=== PATIENT | male | born 1940 | race Caucasian/White ===

== ENCOUNTER 2020-05-07 17:11 | Inpatient (IN) | payer OTHER, MEDICARE ==
[2020-05-07] VITALS (107 sets, daily range): BP systolic 133; BP diastolic 80; PULSE 54; O2SAT 93–98
[~2020-05-07] VITALS: Ht 182.9 cm; Wt 116.8 kg
--- NOTE | 2020-05-07 18:10 | NUR ---
SEE MERGE DOCUMENTATION FOR MEDICATION ADMINISTRATION TIMES AND INTRA/POST PROCEDURE SEDATION ASSESSMENTS. PT DIRECT TO DIRECTOR OF REIMBURSEMENT VIA EMS. PT A&OX3 AND VERBALIZES UNDERSTANDING OF PROCEDURE. VERBAL CONSENT OBTAINED. PT ALSO VERBALLY CONSENTS TO BLOOD ADMIN IF NEEDED. VERIFIED WITH ARLENE LIU DIRECTOR OF REIMBURSEMENT.
--- NOTE | 2020-05-07 20:00 | NUR ---
PT ADITTED TO ICU 2 FROM [facility] WITH TEMP PACER IN PLACE, PT VSS AT THIS TIME, DENIES ANY PAIN. PT ORIENTATED TO ROOM AND RE-ORIENTED TO DX, TEMP PACER, AND POC. WILL CONTINUE TO MONTIOR AND AWAIT ORDERS, FOR MEDS AND ELECTROLYTE REPLACEMENT.
[2020-05-07] MEDS ORDERED: LIPITOR 80MG80 MG PO (23:50)
[2020-05-07] MEDS ORDERED: COREG 3.123.125 MG/T PO (23:51)
[2020-05-07] MEDS ORDERED: PRINIVIL2.5 MG PO (23:52)
[2020-05-07] MEDS ORDERED: DEMADEX 20MG20 M1 (23:54)
[2020-05-08] VITALS (450 sets, daily range): BP systolic 111–186; BP diastolic 57–102; PULSE 61–85; TEMP 97.9–98.7; O2SAT 85–96
[2020-05-08 00:07] LABS: BASO % 0.3 % (0.0-2.0); EOS # 0.2 (0.0-0.7); EOS % 2.8 % (0-4.0); GRAN # 4.4 (1.4-6.5); GRAN % 72.2 % (42.2-75.2); HEMATOCRIT 37.5 % (42.0-52.0); HEMOGLOBIN 12.5 g/dl (13.5-18.0); LYMPH % 16.2 % (20.0-51.0); MEAN CELL VOLUME 96 fl (80.0-100.0); MEAN CORPUSCULAR HEMOGLOBIN 32 pg (27.0-31.0); MEAN CORPUSCULAR HGB CONC 33 g/dl (33.0-37.0); MEAN PLATELET VOLUME 11.9 fl (7.4-10.4); MONO # 0.5 (0.1-0.6); MONO % 8.2 % (1.7-9.3); REDCELL DISTRIBUTION WIDTH-CV 14.2 % (11.5-14.5)
[2020-05-08 00:11] LABS: CREATININE, serum 0.82 (0.66-1.25); MAGNESIUM 1.9 mg/dL (1.6-2.3); POTASSIUM 3.5 mmol/L (3.4-5.0)
[2020-05-08 00:15] LABS: PLATELET COUNT 147 K/mm3 (130-400)
[2020-05-08] MEDS ORDERED: CALCIUM CARBON650 M2 (00:52)
[2020-05-08] MEDS ORDERED: METAMUCIL3.4 GM/DOS (00:54)
[2020-05-08] MEDS ORDERED: ZYLOPRIM 100MG100 MG (00:56)
[2020-05-08] MEDS ORDERED: KLOR-CON SPRIN10 MEQ (00:57)
[2020-05-08 05:21] LABS: BASO % 0.3 % (0.0-2.0); EOS # 0.2 (0.0-0.7); EOS % 2.8 % (0-4.0); GRAN # 4.6 (1.4-6.5); GRAN % 73.1 % (42.2-75.2); HEMOGLOBIN 12.6 g/dl (13.5-18.0); LYMPH % 15.5 % (20.0-51.0); MEAN CELL VOLUME 96 fl (80.0-100.0); MEAN CORPUSCULAR HEMOGLOBIN 32 pg (27.0-31.0); MEAN CORPUSCULAR HGB CONC 33 g/dl (33.0-37.0); MEAN PLATELET VOLUME 11.9 fl (7.4-10.4); MONO # 0.5 (0.1-0.6); PLATELET COUNT 150 K/mm3 (130-400); RED BLOOD COUNT 3.97 M/mm3 (4.20-5.60); REDCELL DISTRIBUTION WIDTH-CV 14.1 % (11.5-14.5)
[2020-05-08 05:35] LABS: ALBUMIN 2.8 gm/dL (3.5-5.0); BILIRUBIN,TOTAL 0.6 mg/dL (0.0-1.0); CREATININE, serum 0.82 (0.66-1.25); POTASSIUM 3.7 mmol/L (3.4-5.0); TOTAL PROTEIN 5.7 gm/dL (6.4-8.2)
--- NOTE | 2020-05-08 05:54 | NUR ---
POTASSIUM REPLACED WITH 20MEQ Q1HR =TOTAL OF 60MEQ
--- NOTE | 2020-05-08 07:45 | NUR ---
paint technician in room. Pt AAOx4, transvenous pacer insertion site stable MD Cornell at bedside, plan to keep pt NPO for dual chamber PPM. EKG to be completed while pacer is paused - RT notified Call light in reach
--- NOTE | 2020-05-08 10:53 | NUR ---
SW attended clinical rounds. The patient is to have a pacemaker placed today. SW then followed up with the patient to discuss discharge plan. The patient was living alone in [place], [place] and was on his way to [place], [place] to live with his girlfriend, Sujata Ponce (ph#[phone]). He states that his belongings are being shipped from [place] and should be arriving in [facility] soon. He reports independence with ADLs and has a cane and four wheel walker. The patient's PCP in [place] was Dr. Sanchez. He reports no difficulties obtaining his meds. The patient does not have a DPOA-HC completed, but he was interested in obtaining a form. SW provided the form. The patient states that he is not , does not have any children, and does not have any siblings. SW asked him about Sarah Haro on his person to notify, when states she is his daughter. The patient states that she is his ex-fiancee's daughter. The patient states that he has already been in contact with his insurance company and plans to rent a car after he discharges and drive to [facility]. SW to continue to follow.
--- NOTE | 2020-05-08 13:27 | NUR ---
Pt to [facility] for PPM insertion
--- NOTE | 2020-05-08 14:00 | NUR ---
SEE MERGE DOCUMENTATION FOR MEDICATION ADMINISTRATION TIMES AND INTRA/POST PROCEDURE SEDATION ASSESSMENTS.
--- NOTE | 2020-05-08 19:28 | NUR ---
Patient was transferred from ICU after pacemaker was placed. patient complained of 3/10 pain. Insulin not required at this time, BS 121. Patient tolerate diet. educated patient on left extremity restriction post pacmaker placement.
--- NOTE | 2020-05-08 20:22 | NUR ---
Resting in bed. Assessment complete. Lungs clear. Heart sounds normal. Bowels active x4. Pulses present. Bilateral lower extremity edema +2. INT right AC without complications. Reporting pain in left shoulder at pacer site. Will provided PRN tylenol. Denies other needs at this time. Call light in reach.
--- NOTE | 2020-05-09 00:46 | NUR ---
Resting in bed. Denies needs. Call light in reach.
--- NOTE | 2020-05-09 02:00 | NUR ---
Resting in bed. Denies needs. call light in reach.
[2020-05-09 03:24] VITALS: BP 139/62; PULSE 65; TEMP 98
--- NOTE | 2020-05-09 06:00 | NUR ---
Patient had uneventful night. Pacer interrogation complete. Denies needs at this time. Call light in reach.
--- NOTE | 2020-05-09 07:21 | NUR ---
Report given to ARLENE Dias
[2020-05-09 08:30] VITALS: BP 154/69; PULSE 72; TEMP 97.6
--- NOTE | 2020-05-09 09:14 | NUR ---
Pt awake and alert upon entry, talkative, no C/O pain at this time, pacemaker site CDI, IJ site CDI, shift assessments complete, left Pt call light in reach, bed in lowest position.
[2020-05-09 12:38] VITALS: BP 138/89; PULSE 64; TEMP 98.1
[2020-05-09 12:43] VITALS: BP 149/63; PULSE 73; TEMP 97.9
[2020-05-09 16:28] VITALS: BP 138/69; PULSE 77; TEMP 98.2
--- NOTE | 2020-05-09 17:01 | NUR ---
Casting Technician collaborated with ARLENE Dias and Draftsperson about discharge plan. Patient is not able to continue driving to [facility] due to his pacemaker being placed. SW met with patient who advised he can afford a bus ticket. SW assisted patient with purchasing a [employer] ticket. Departure will be 05/11/20 @ 0630 from [place], [place]. Draftsperson confirmed [employer] will provide transport to [place]. MILADY will follow up with [employer] tomorrow to schedule a ride from the hospital to [place]. MILADY will print patient's ticket and provide it to him tomorrow. Confirmation #[id number]. MILADY provided update to patient's girlfriend, Sujata Ponce. MILADY will continue to follow.
--- NOTE | 2020-05-09 19:24 | NUR ---
Pt resting in the room, no C/O pain today, both IJ and pacermaker sited remain CDI, VS have remained stable.
[2020-05-09 19:46] VITALS: BP 118/54; PULSE 79; TEMP 98.2
--- NOTE | 2020-05-09 22:40 | NUR ---
Pt assessment completed and documented. Pt sitting up in chair at this time watching television. Pt alert and oriented x3. Complaints of "itching" at pacemaker incision site that pt states the ice pack he has on it is relieving some of the discomfort. INT to right ac patent and has good blood return. Telemetry on. Pt denies any other needs at this time. Call light within reach. Will continue to monitor.
[2020-05-10] VITALS (7 sets, daily range): BP systolic 114–144; BP diastolic 56–74; PULSE 67–93; TEMP 97.4–98.6
--- NOTE | 2020-05-10 05:10 | NUR ---
Pt had uneventful shift. Pt went to bed around 0100 after sitting up in his recliner all evening. Pt has been resting in bed since. Complaints of itching discomfort to pacemaker site overnight. INT to right ac patent and intact. Dressing to pacemaker site CDI. Pt denies any other needs. Call light within reach.
[2020-05-10 07:35] LABS: CALCIUM 8.1 mg/dL (8.4-10.2); CREATININE, serum 1.01 (0.66-1.25); POTASSIUM 3.1 mmol/L (3.4-5.0)
[2020-05-10 07:37] LABS: BASO % 0.5 % (0.0-2.0); EOS # 0.2 (0.0-0.7); EOS % 2.8 % (0-4.0); GRAN # 4.4 (1.4-6.5); HEMATOCRIT 39.4 % (42.0-52.0); HEMOGLOBIN 13.3 g/dl (13.5-18.0); LYMPH # 1.1 (1.2-3.4); LYMPH % 17.6 % (20.0-51.0); MEAN CELL VOLUME 95 fl (80.0-100.0); MEAN CORPUSCULAR HEMOGLOBIN 32 pg (27.0-31.0); MEAN CORPUSCULAR HGB CONC 34 g/dl (33.0-37.0); MEAN PLATELET VOLUME 12.8 fl (7.4-10.4); MONO # 0.6 (0.1-0.6); MONO % 9.2 % (1.7-9.3); PLATELET COUNT 113 K/mm3 (130-400); RED BLOOD COUNT 4.16 M/mm3 (4.20-5.60); REDCELL DISTRIBUTION WIDTH-CV 14.1 % (11.5-14.5)
--- NOTE | 2020-05-10 09:02 | NUR ---
Pt awake and alert upon entry, finished breakfast, no C/O pain this morning. Shift assessments complete, left Pt call light in reach.
[2020-05-10] MEDS ORDERED: DEMADEX 20MG20 M1 PO (10:04)
[2020-05-10] MEDS ORDERED: K-DUR 10 MEQ T10 MEQ PO (10:05)
[2020-05-10] MEDS ORDERED: MACROBID 1100 MG/CAP PO (10:07)
--- NOTE | 2020-05-10 15:44 | NUR ---
Petroleum Refinery Worker contacted [facility] and scheduled slat pickler time for tomorrow, 05/11/20 @ 0445. Patient will be picked up in the ED entrance. MILADY met with patient and provided print out of his boarding passes. There is one for when he arrives in [place], and another that he will need to present when they arrive at [place], [place] and change busses. MILADY also printed out a purchase receipt and trip schedule, which was emailed to MILADY. MILADY also made a copy and placed on patient's chart, as a back up. SW provided slat pickler time for taxi tomorrow along with ugarte of ride to [place] which will be $120. Patient is frustrated with the cost of the taxi ride and bus trip, but states he can afford it as he was able to increase the limit on his credit card. MILADY confirmed with [facility] that they can take a credit or debit card. MILADY reviewed schedule with patient who verbalized understanding. MILADY encouraged patient to ask for help from [facility] staff if he has any questions when he switches buses in [place]. Patient again verbalized understanding. MILDAY contacted patient's girlfriend, Sujata and left a message. MILADY collaborated the above information to Clinic Manager and RN, Arun. MILADY spoke with Arun about having patient down in the ED entrance at 0430 to wait for [facility] to arrive. No additional needs at this time.
--- NOTE | 2020-05-10 19:07 | NUR ---
PATIENT UP INDEPENDENTLY IN ROOM AND HALLWAYS WITH NO C/O. TELE IN PLACE. CHANGE OF SHIFT REPORT RECEIVED FROM DAY SHIFT NURSE.
--- NOTE | 2020-05-10 20:00 | NUR ---
TELE IN PLACE, PATIENT WITH NO C/O CHEST PAIN OR SHORTNESS OF BREATH. REPORTS ANTICIPATED DISCHARGE EARLY AM, TO LEAVE HOSPITAL FOR BUS TRIP TO [place] AT 0430 ON 05/11, WANTING TO MAKE SURE ALL HIS PAPERWORK IS READY AND IN ORDER FOR HIM TO TAKE WITH HIM ON DISCHARGE. DENIES ANY NEEDS AT THIS TIME. UP INDEPENDENTLY WITH NO PROBLEMS. DRESSING TO LEFT UPPER CHEST PACEMAKER SX SITE CDI, REVIEWED KEEPING PACEMAKER INCISION COVERED DURING SHOWERS, CONTINUE WITH PACEMAKER RESTRICTION, TO WEAR SLING TO LUE WHEN IN BED/DURING SLEEP.
[2020-05-11 02:09] VITALS: BP 126/64; PULSE 78; TEMP 97.6
--- NOTE | 2020-05-11 02:18 | NUR ---
TELE REPORTED PATIENT WITH AFIB W/RVR RUN LASTING 25-30 SEC WITH HR 150, RHYTHM NOW CURRENTLY PACED W/SPIKES. VS TAKEN, SEE [facility] FOR RESULTS WITH PATIENT DENYING CHEST PAIN/SHORTNESS OF BREATHE. DR CALDERON INFORMED OF TELE REPORT AND SUBSEQUENT ASSESSMENT WITH NO NEW ORDERS GIVEN.
[2020-05-11 12:04] VITALS: BP 137/91; PULSE 70; TEMP 98.4
--- NOTE | 2020-05-11 13:40 | NUR ---
Ranch Rider was notified by Section Repairer that [employer] [facility] did not show up to tile picker patient this morning. MILADY collaborated with Section RepairerCari in Risk Management, and Belinda with the [facility] to establish discharge plan. With approval from Belinda, MILADY purchased a bus ticket for tomorrow, 05/12/20. Departure will be from [place] at 0630. Cost of ticket is $186.99. MILADY provided printed tickets and schedule to patient. MILADY collaborated with Section Repairer and Belinda to reserve a hotel room this evening in [place]. MILADY was advised we contract with with [facility]. MILADY spoke with Chandler at the [place] and made a reservation for this evening. Cost of hotel is $105.81. MILADY then contacted Isauro Marcelino, B2B [facility]. Isauro advised he could pick patient up today at 1500 to take patient to the [place] and could also tile picker patient tomorrow, 05/12/20 @ 0400 at the [place] [facility] [place] Cost of both trips totals $130. MILADY collaborated with Belinda who provided check made out to Isauro Marcelino. MILADY contacted Isauro again to notify him of method of payment and to again confirm tile picker time of tomorrow, 05/12/20 @ 0400. Isauro states he understands the importance of this and also verbalized understanding that he is being paid upfront, so he needs to arrive on time tomorrow. MILADY provided tile picker time and contact information for Isauro at [facility] to patient. Patient verbalized understanding of the plan including transportation arrangements and bus schedule. MILADY assisted patient in setting an alarm on his phone for tomorrow at 0300. MILADY also contacted Chandler at the [facility] and requested a wake up call of 0300. Chandler advised that they will call up to the room and if patient does not answer, they will send a staff member up to knock on the door. MILADY stressed the importance of patient getting up on time tomorrow. MILADY emailed receipts for bus ticket and hotel room to Belinda. MILADY provided update to Section Repairer and RNLori. MILADY contacted patient's girlfriend, Sujata to review the plan. Sujata verbalized understanding and confirms that she will tile picker patient tomorrow, 02/10/20 at [place], [place]. No additional needs at this time.
--- NOTE | 2020-05-11 17:54 | NUR ---
Patient discharged to [facility] via taxi at 1415.
--- NOTE | 2020-05-14 11:53 | NUR ---
Anime Artist followed up with patient's girlfriend, Sujata who advised patient made it to [place] safely. Patient has an appointment with a PA tomorrow to establish primary care. No additional needs at this time.
== END 2020-05-11 14:15 | disposition home or self-care (01) | DRG 243 ==
LOC: ICU 17:11 → MEDICAL 17:37 → ICU 17:37 → MEDICAL 05-08 16:47
PROVIDERS: Hospitalist; Nurse Practitioner Family; ADMIT Student in an Organized Health Care Education/Training Program
PROC: 0JH606Z Insertion of Pacemaker, Dual Chamber into Chest Subcutaneous Tissue and Fascia, Open Approach (ICD-10-PCS; principal; 2020-05-08)
PROC: 02H63JZ Insertion of Pacemaker Lead into Right Atrium, Percutaneous Approach (ICD-10-PCS; 2020-05-08)
PROC: 02HK3JZ Insertion of Pacemaker Lead into Right Ventricle, Percutaneous Approach (ICD-10-PCS; 2020-05-08)
DX: I44.2 Atrioventricular block, complete (principal); N39.0 Urinary tract infection, site not specified; G93.49 Other encephalopathy; M51.36 Other intervertebral disc degeneration, lumbar region; I50.9 Heart failure, unspecified; E87.6 Hypokalemia; D64.9 Anemia, unspecified; I11.0 Hypertensive heart disease with heart failure; E78.5 Hyperlipidemia, unspecified; Z66 Do not resuscitate; E66.9 Obesity, unspecified; F17.210 Nicotine dependence, cigarettes, uncomplicated; I25.10 Atherosclerotic heart disease of native coronary artery without angina pectoris; R79.89 Other specified abnormal findings of blood chemistry; E11.51 Type 2 diabetes mellitus with diabetic peripheral angiopathy without gangrene; Z95.1 Presence of aortocoronary bypass graft
CPT/HCPCS: 99223-AI; 99232-AI; 99233-AI; 99239; C1769; C1785; C1894; C1898; J0690; J0696; J1644; J2250; J3010; J3480; J7030; J7040